=== PATIENT | female | born 1970 | race Hispanic/Latino ===

== ENCOUNTER 2017-09-05 12:13 | Outpatient (CLI) | payer BC | END 2017-09-05 12:14 | disposition home or self-care (01) | LOC: BICRAD 12:13 | PROVIDERS: ATTEND Family Medicine | DX: M79.672 Pain in left foot (principal); M19.072 Primary osteoarthritis, left ankle and foot ==

== ENCOUNTER 2018-11-24 08:04 | Inpatient (IN) | payer BC ==
--- NOTE | 2018-11-24 08:23 | RAD ---
Exam: Chest one view HISTORY:Pain Comparison: 04/30/17 FINDINGS: Lungs: No masses or consolidation. Cardiac silhouette: Normal size Pulmonary vessels: Normal Pleural Spaces: Clear Pneumothorax: None Osseous abnormalities: None of acuity. IMPRESSION: No focal consolidation.
[2018-11-24 08:25] LABS: #Eosinphils 0.1 thou/uL (0.0-0.7); #Lymphocytes 1.7 thou/uL (1.20-3.40); #Monocytes 0.6 thou/uL (0.11-0.59); #Neutrophils 6.7 thou/uL (1.40-6.50); %Basophils 0.3 % (0.0-1.0); %Eosinophils 1.1 % (0.0-10.0); %Lymphocytes 18.4 % (21.0-51.0); %Monocytes 6.8 % (0.0-10.0); %Neutrophils 73.5 % (42.0-75.0); Hemoglobin 16.3 g/dL (12.0-16.0); Mean Corpuscular HGB CONC 31.5 g/dL (32.0-36.0); Mean Corpuscular Hemoglobin 26.6 pg (27.0-31.0); Mean Corpuscular Volume 84.3 fL (78.0-98.0); Mean Platelet Volume 8.6 fL (7.4-10.4); Platelet Count 234 thou/uL (130-400); RBC Distribution Width 12.4 % (11.5-14.5); Red Blood Cell (RBC) Count 6.15 mill/uL (4.20-5.40); White Blood Cell (WBC) Count 9.2 thou/uL (4.8-10.8)
[2018-11-24 08:37] LABS: ALT (SGPT) 19 U/L (8-55); AST (SGOT) 13 U/L (5-34); Albumin 4.8 g/dL (3.5-5.0); Alkaline Phosphatase 71 U/L (40-150); Anion Gap 12 mmol/L (10-20); BUN (Urea Nitrogen) 12 mg/dL (7.0-18.7); Bilirubin, Total 0.6 mg/dL (0.2-1.2); CK (CPK) 68 U/L (29-168); Calc. Creatinine Clearance 0 mL/min (70-130); Calcium 10.1 mg/dL (7.8-10.44); Carbon Dioxide 32 mmol/L (22-29); Chloride 99 mmol/L (98-107); Estimated GFR-MDRD 79; Globulin 3.3 g/dL (2.4-3.5); Glucose 118 mg/dL (70-105); Potassium 3.7 mmol/L (3.5-5.1); Protein, Total 8.1 g/dL (6.0-8.3); Sodium 139 mmol/L (136-145)
[2018-11-24] MEDS ORDERED: Aspirin Chewable 81 MG TAB ONE (08:50)
[2018-11-24 09:02] LABS: CKMB 2.3 ng/mL (0-6.6)
[2018-11-24] MEDS ORDERED: Enoxaparin Sodium 100 MG/ML SYRINGE ONE (09:07)
[2018-11-24] MEDS ORDERED: Nitroglycerin 0.4 MG TAB 1 EACH ONE ×2 (09:07→09:09)
--- NOTE | 2018-11-24 11:48 | HP ---
PRIMARY CARE PHYSICIAN: Harley Brown DO CHIEF COMPLAINT: Chest pain. HISTORY OF PRESENT ILLNESS: The history of present illness is taken primarily from the patient's daughter, who is at the bedside, who also acts as a laundry machine operator. Ms. Ackerman is a 48-year-old female, who has a history of hypertension. She was in her usual state of health until last night. She says that she was just basically sitting and watching TV when she started having some pain in her chest. She says it was pretty much all over her chest and started as a soreness and then ever so often she would get some severe or some sharp chest pains as well. She thought it could be due to her blood pressure, so she took her atenolol, but it did not help and the pain pretty much went through out the night and got progressively worse and until this morning when she woke up, it was about 10/10. She went to work as usual, however, but as she was working, the pain got worse and she told her boss that she could not do it anymore and as a result, she came to the ER for evaluation. The patient also felt some shortness of breath associated with this. She was feeling anxious and exhausted and in the last month, she has been extremely fatigued. She also says in the last couple of weeks when she walks, she would get some pain in her chest as well. She also noted some chills as well but no nausea, no vomiting, no diaphoresis. Again, the pain radiated between the shoulder blades. When she was seen in the emergency room, she was given aspirin and sublingual nitroglycerin as well as Lovenox and says that this has brought the pain down from 10 to 7. The patient denies any palpitations. No leg pain or leg swelling in the last few days. REVIEW OF SYSTEMS: All systems were reviewed and are negative except for that mentioned in the history of present illness. PAST MEDICAL HISTORY: Significant for hypertension. PAST SURGICAL HISTORY: Significant for cholecystectomy. ALLERGIES: NO KNOWN DRUG ALLERGIES. SOCIAL HISTORY: She is . She has 6 children. She smokes about one cigarette a day. She drinks occasionally on specially vents and she is a full code. FAMILY HISTORY: Significant for hypertension and her father had an OR and at age 68. MEDICATIONS: Include: 1. Atenolol. 2. Chlorthalidone 25 mg. PHYSICAL EXAMINATION: GENERAL: She is alert and oriented. She appears to be in no acute distress. She is well developed and well nourished, very cooperative. VITAL SIGNS: Her blood pressure was 183/90, heart rate 54, respiratory rate of 16, and temperature is 98. HEENT: Her pupils are equal, round, and reactive. Extraocular muscles are intact. Throat; there is no erythema, no exudates. NECK: There is no adenopathy, no bruits. LUNGS: Clear to auscultation. There is no wheezing, no rales, no rhonchi. CARDIOVASCULAR: She had a normal S1, S2. I did not appreciate an S3 or S4. No murmurs, clicks, or rubs. ABDOMEN: Obese. It is soft. It is nontender and nondistended. Positive for bowel sounds. There is no rebound or guarding. EXTREMITIES: There is no clubbing or cyanosis. No edema. NEUROLOGIC: Grossly nonfocal. SKIN AND INTEGUMENT: There are no skin changes. No rashes. LABORATORY DATA: The white blood cell count was 9.2, hemoglobin 16.3, hematocrit is 51.8, and platelet count is 234. Sodium is 139, potassium 3.7, chloride is 99, CO2 is 32, BUN of 12, creatinine 0.78, glucose is 118. Her troponin was 0.030. On her EKG, it was sinus rhythm, the rate was around 60. Normal axis with no ST wave changes. She also had chest x-ray, which was essentially negative. There was no evidence of any infiltrates or effusions. ASSESSMENT: 1. This is a 48-year-old female, who presents with chest pain. The description of her pain is a bit atypical and that it happened all over and was at rest. She is a bit young for coronary artery disease. However, given her personal history of hypertension and the fact that she is a smoker and she did have some exertional symptoms, it does place coronary artery disease a little bit higher on the differential plus she had a troponin which was slightly elevated. It is unlikely that this is a pulmonary embolism as she has been more or less ambulatory and her symptoms are not suggestive of this. Therefore, she will be placed in the observation. She will be admitted for possible acute coronary syndrome. We will continue to trend her cardiac enzymes. Place her on aspirin, nitrates, and Lovenox or heparin as well as a beta kandice, which she is already on. We will order a nuclear stress test. If her troponins go in a range of NSTEMI, then the stress test can be aborted and then Cardiology will be consulted instead. 2. With regard to hypertension, continue atenolol, plus we will have p.r.n. medications available, and we will also check a lipid panel. Further recommendations are to follow. Job ID: [id number]
[2018-11-24 11:54] LABS: Troponin I 0.413 ng/mL (< 0.028)
[2018-11-24] MEDS ORDERED: Nitroglycerin 2% Ointment 1 INCH/1 GM Packet TOP SCH ×2 (14:00→17:30)
[2018-11-24] MEDS ORDERED: Labetalol HCl 100 MG/20 ML VIAL SLOW IVP PRN (14:19)
[2018-11-24] MEDS ORDERED: hydrALAZINE 20 MG/ML VIAL SLOW IVP PRN (14:19)
[2018-11-24] MEDS ORDERED: Acetaminophen 325 MG TAB PO PRN (14:19)
[2018-11-24 15:28] VITALS: BMI 36.6
--- NOTE | 2018-11-24 15:30 | CT ---
Exam: CT angiogram chest: CT angiogram abdomen: Exams include 3-D rendering: HISTORY: Chest pain COMPARISON: None FINDINGS: CT angiogram chest: No evidence for aortic aneurysm or dissection. No central pulmonary artery thrombosis. No pleural or pericardial effusion. No acute pulmonary parenchymal process. Remote appearing collapsed T8 vertebral body. No mediastinal mass or adenopathy. CT angiogram abdomen: No evidence of abdominal aortic aneurysm or dissection. Superior mesenteric artery, celiac artery, and inferior mesenteric arteries are unremarkable. Renal arteries are unremarkable bilaterally. Status post cholecystectomy. No evidence for other significant acute process in the abdomen. IMPRESSION: No evidence for aortic aneurysm or dissection are other significant acute process in the chest or abd omen.
[2018-11-24 15:40] LABS: Troponin I 3.891 ng/mL (< 0.028)
[2018-11-24] MEDS ORDERED: ISOVUE-370 76%-LOCM 1 ML ONE (16:54)
[2018-11-24] MEDS: Sodium Chloride 0.9% 1,000 ML IV SCH (19:32)
--- NOTE | 2018-11-24 20:32 | CON ---
DATE OF CONSULTATION: HISTORY OF PRESENT ILLNESS: The patient is a 48-year-old woman, who presents with chest discomfort. The patient was seen in April 2017 with chest discomfort. The patient underwent an evaluation including echocardiogram, which was unremarkable. The patient presented with the acute onset of left-sided chest discomfort. She states this started yesterday morning. It was present throughout the day. The patient reported having dyspnea. The patient came to the emergency room for further evaluation. The patient states she has continued to have this discomfort. PAST MEDICAL HISTORY: Significant for hypertension. PAST SURGICAL HISTORY: Hysterectomy and cholecystectomy. SOCIAL HISTORY: Nonsmoker. FAMILY HISTORY: Strong family history of heart disease. ALLERGIES: NO KNOWN DRUG ALLERGIES. PHYSICAL EXAMINATION: GENERAL: This is an obese woman, in no acute distress. VITAL SIGNS: Blood pressure is 160/70. NECK: No jugular venous distention. LUNGS: Clear to auscultation. HEART: Regular rate and rhythm. Normal S1 and S2 with a 2/6 systolic murmur. ABDOMEN: Distended. EXTREMITIES: Showed trace edema. Vascular radial pulse 2+. LABORATORY DATA: White blood cell count 9.2, hemoglobin 16.3, hematocrit 51.8, and platelet 234. Sodium is 139, potassium 3.7, chloride 99, bicarb 32, BUN 12, creatinine 0.78, and glucose 118. Troponin is 0.0413. EKG revealed normal sinus rhythm, normal ECG. IMPRESSION: 1. Chest pain. 2. Hypertension. 3. Possible small non-Q-wave myocardial infarction. 4. Obesity. PLAN: This patient presents with chest discomfort and markedly elevated blood pressure. Troponin is mildly elevated. We would recommend a CT scan to rule out an aortic dissection. We will obtain serial cardiac enzymes. Further recommendation will follow. Job ID: [id number]
[2018-11-24 20:49] LABS: Hemoglobin 15.5 g/dL (12.0-16.0); Platelet Count 215 thou/uL (130-400)
[2018-11-24] MEDS ORDERED: Enoxaparin Sodium 100 MG/ML SYRINGE SC SCH (21:00)
[2018-11-24] MEDS: Atorvastatin Calcium 40 MG TAB PO SCH (21:17)
[2018-11-24] MEDS: Famotidine 20 MG TAB PO SCH (21:18)
[2018-11-24] MEDS: Nitroglycerin 2% Ointment 1 INCH/1 GM Packet TOP SCH (21:18)
[2018-11-25] MEDS: Sodium Chloride 0.9% 1,000 ML IV SCH (05:22)
[2018-11-25] MEDS: Nitroglycerin 2% Ointment 1 INCH/1 GM Packet TOP SCH ×3 (05:23→21:04)
[2018-11-25] MEDS: Aspirin 325 MG TAB PO SCH (05:24)
[2018-11-25] MEDS: Famotidine 20 MG TAB PO SCH ×2 (05:25→21:01)
[2018-11-25 06:55] LABS: #Eosinphils 0.1 thou/uL (0.0-0.7); #Lymphocytes 1.6 thou/uL (1.20-3.40); #Monocytes 0.5 thou/uL (0.11-0.59); #Neutrophils 4.4 thou/uL (1.40-6.50); %Basophils 0.2 % (0.0-1.0); %Eosinophils 1.9 % (0.0-10.0); %Lymphocytes 24.1 % (21.0-51.0); %Monocytes 7.7 % (0.0-10.0); %Neutrophils 66.1 % (42.0-75.0); Mean Corpuscular HGB CONC 33.6 g/dL (32.0-36.0); Mean Corpuscular Hemoglobin 28.6 pg (27.0-31.0); Mean Platelet Volume 8.4 fL (7.4-10.4); Platelet Count 177 thou/uL (130-400); RBC Distribution Width 12.4 % (11.5-14.5); Red Blood Cell (RBC) Count 5.23 mill/uL (4.20-5.40); White Blood Cell (WBC) Count 6.6 thou/uL (4.8-10.8)
[2018-11-25 07:06] LABS: Anion Gap 10 mmol/L (10-20); BUN (Urea Nitrogen) 13 mg/dL (7.0-18.7); Calc. Creatinine Clearance 126 mL/min (70-130); Calcium 9.2 mg/dL (7.8-10.44); Carbon Dioxide 29 mmol/L (22-29); Cardiac Risk 4.6 (Less than 4.5); Chloride 102 mmol/L (98-107); Cholesterol 197 mg/dl (< 200 Desired); Estimated GFR-MDRD 81; Glucose 92 mg/dL (70-105); HDL Cholesterol 43 mg/dL (>60 Neg Risk); LDL Cholesterol, Calculated 129 mg/dL; Potassium 4.1 mmol/L (3.5-5.1); Sodium 137 mmol/L (136-145); Triglycerides 123 mg/dL (Less than 150)
[2018-11-25] MEDS ORDERED: Fentanyl 100 MCG/2 ML VIAL ONE (07:24)
[2018-11-25] MEDS ORDERED: Midazolam HCl 2 mg/2 ml Vial ONE (07:24)
[2018-11-25] MEDS ORDERED: Sodium Chloride 0.9% 200 ML IV PRN (08:00)
[2018-11-25] MEDS ORDERED: Acetaminophen/Codeine 30-300mg Tablet PO PRN (08:02)
[2018-11-25] MEDS ORDERED: Nitroglycerin 0.4 MG TAB (25 Tab Bottle) SL PRN (08:02)
[2018-11-25] MEDS ORDERED: Clopidogrel Bisulfate 300 MG TAB PO SCH (08:30)
[2018-11-25] MEDS ORDERED: Non-Formulary Item 1 EACH (Atenolol/Chlorthalidone [Atenolol-Chlorthalidone 50-25] 1 EACH PO SCH (09:00)
[2018-11-25] MEDS ORDERED: Atenolol 50 MG TAB PO SCH (09:00)
[2018-11-25] MEDS ORDERED: Chlorthalidone 25 MG TAB PO SCH (09:00)
[2018-11-25] MEDS: Carvedilol 3.125 MG TAB PO SCH ×2 (09:38→21:01)
[2018-11-25] MEDS: Lisinopril 2.5 MG TAB PO SCH (09:38)
[2018-11-25] MEDS ORDERED: Iopamidol 370 76% 100 ML VIAL ONE (11:59)
[2018-11-25] MEDS ORDERED: Communication Order-Pharmacy FS SCH (18:00)
[2018-11-25] MEDS: Atorvastatin Calcium 40 MG TAB PO SCH (21:01)
--- NOTE | 2018-11-25 21:11 | PDOC.PN ---
- Subjective Encounter Start Date: 11/25/18 Encounter Start Time: 09:00 Subjective: pt up in bed no complains of pain - Objective Resuscitation Status - Order Detail: 11/24/18 11:13 Resuscitation Status Routine Resuscitation Status: FULL: Full Resuscitation Vital Signs & Weight: Vital Signs (12 hours) Temp Pulse Pulse Pulse Resp BP BP 11/25/18 19:15 97.3 F L 87 18 11/25/18 16:29 98 F 69 18 11/25/18 12:48 99 F 69 18 11/25/18 11:56 64 63 138/74 136/66 11/25/18 09:17 56 L BP Pulse Ox Pulse Ox Pulse Ox 11/25/18 19:15 122/58 L 96 11/25/18 16:29 120/63 96 11/25/18 12:48 129/73 96 11/25/18 11:56 96 96 11/25/18 09:17 Weight Weight 194 lb I&O: 11/24/18 11/25/18 11/26/18 06:59 06:59 06:59 Intake Total 1540 720 Output Total 800 500 Balance 740 220 Result Diagrams: 11/25/18 06:23 11/25/18 06:23 Phys Exam - Physical Examination Neck: no nodes, no JVD, supple, full ROM Respiratory: no wheezing, no rales, no rhonchi, wheezing present, clear to auscultation bilateral Cardiovascular: RRR, no significant murmur, no rub, gallop, irregular Gastrointestinal: soft, non-tender, no distention, positive bowel sounds Dx/Plan (1) NSTEMI (non-ST elevated myocardial infarction) Code(s): I21.4 - NON-ST ELEVATION (NSTEMI) MYOCARDIAL INFARCTION Status: Acute (2) Chest pain Code(s): R07.9 - CHEST PAIN, UNSPECIFIED Status: Acute (3) Obesity Code(s): E66.9 - OBESITY, UNSPECIFIED Status: Acute (4) Anemia Code(s): D64.9 - ANEMIA, UNSPECIFIED Status: Acute - Plan pt on asa/statin and AC -: pt to go for cardiac cath this am. -: will continue to monitor * . Review of Systems - Review of Systems ENT: negative: Ear Pain, Ear Discharge, Nose Pain, Nose Discharge, Nose Congestion, Mouth Pain, Mouth Swelling, Throat Pain, Throat Swelling, Other Respiratory: negative: Cough, Dry, Shortness of Breath, Hemoptysis, SOB with Excertion, Pleuritic Pain, Sputum, Wheezing - Medications/Allergies Allergies/Adverse Reactions: Allergies Allergy/AdvReac Type Severity Reaction Status Date / Time No Known Drug Allergies Allergy Verified 11/09/15 11:22 Medications: Current Medications Acetaminophen (Tylenol) 650 mg PO Q4H PRN PRN Reason: Headache/Fever/Mild Pain (1-3) Acetaminophen/Codeine Phosphate (Tylenol #3) 1 tab PO Q4H PRN PRN Reason: Mild Pain (1-3) Last Admin: 11/25/18 19:23 Dose: 1 tab Aspirin (Aspirin) 325 mg PO DAILY [facility] Last Admin: 11/25/18 05:24 Dose: 325 mg Atorvastatin Calcium (Lipitor) 40 mg PO HS [facility] Last Admin: 11/25/18 21:01 Dose: 40 mg Carvedilol (Coreg) 3.125 mg PO BID [facility] Last Admin: 11/25/18 21:01 Dose: 3.125 mg Clopidogrel Bisulfate (Plavix) 75 mg PO DAILY [facility] Famotidine (Pepcid) 20 mg PO BID [facility] Last Admin: 11/25/18 21:01 Dose: 20 mg Hydralazine HCl (Apresoline) 10 mg SLOW IVP Q4H PRN PRN Reason: SBP > 180 and HR < 70 Labetalol HCl (Normodyne) 20 mg SLOW IVP Q4H PRN PRN Reason: SBP > 180 and HR >/= 70 Lisinopril (Zestril) 2.5 mg PO DAILY [facility] Last Admin: 11/25/18 09:38 Dose: 2.5 mg Nitroglycerin (Nitro-Bid 2% Ointment) 0.5 inch TOP Q8HR [facility] Last Admin: 11/25/18 21:04 Dose: 0.5 inch Nitroglycerin (Nitrostat) 0.4 mg SL Q5MIN PRN PRN Reason: Chest Pain
[2018-11-26] MEDS: Nitroglycerin 2% Ointment 1 INCH/1 GM Packet TOP SCH ×2 (05:31→13:48)
[2018-11-26 08:09] VITALS: TEMP 97.9
[2018-11-26] MEDS: Aspirin 325 MG TAB PO SCH (08:43)
[2018-11-26] MEDS: Lisinopril 2.5 MG TAB PO SCH (08:43)
[2018-11-26] MEDS: Famotidine 20 MG TAB PO SCH (08:43)
[2018-11-26] MEDS: Carvedilol 3.125 MG TAB PO SCH (08:43)
[2018-11-26] MEDS ORDERED: Clopidogrel Bisulfate 75 MG TAB PO SCH (09:00)
[2018-11-26 15:10] VITALS: BP 124/61
--- NOTE | 2018-11-27 05:24 | DIS ---
DATE OF ADMISSION: 11/24/2018 DATE OF DISCHARGE: 11/26/2018 DISCHARGE DIAGNOSES: As of the following; 1. Gty-QP-[id number] elevation myocardial infarction. 2. Hypertension. 3. Smoking history. 4. Obesity. HOSPITAL COURSE: The patient is a 48-year-old female who initially presented to the hospital with chest pain. She did undergo a CT dissection which was negative for any aortic aneurysm dissection. At this time, her enzymes continued to worsen. She underwent a catheterization by Cardiology, which indicated severe distal RPDA 90% stenosis and small vessel non-amenable to stenting or bypass. Her EF was normal and moderate plaque to left circumflex, moderate plaque to left diagonal, and moderate to mid LAD. At this time, the recommendation was Plavix and aspirin, high-dose statin, MAC and beta kandice. The patient was stable overnight and will be discharged home. DISCHARGE MEDICATIONS: As of the following; 1. Lisinopril 2.5 daily. 2. Clopidogrel 75 daily. 3. Carvedilol 3.125 twice a day. 4. Lipitor 20 mg at bedtime. 5. Aspirin 325 mg daily. DISCHARGE FOLLOWUP: She will follow up with Cardiology as outpatient. PHYSICAL EXAMINATION: VITAL SIGNS: 97.9, 65, 16, 96% on room air 121/64. GENERAL: She is awake, alert, and oriented x3. Does not appear in any distress. CV: S1, S2 present. No murmurs, rubs, or gallops. ABDOMEN: Soft and nontender. Bowel sounds are present x2. Her right groin catheterization site appears stable. EXTREMITIES: Pulses are present. DISCHARGE INSTRUCTIONS: The patient was again recommended not to smoke. She understands and I did also tell her that she needs to be compliant with the medications and follow up with Cardiology. Job ID: [id number]
--- NOTE | 2018-11-28 14:17 | EKG ---
Test Reason : Blood Pressure : / mmHG Vent. Rate : 060 BPM Atrial Rate : 060 BPM P-R Int : 150 ms QRS Dur : 070 ms QT Int : 450 ms P-R-T Axes : 052 026 033 degrees QTc Int : 450 ms Normal sinus rhythm Possible Left atrial enlargement Borderline ECG Confirmed by HUMBLE LAGUNA DO ([id number]), editor city [place] [facility] ([id number]) on 11/28/2018 2:17:09 PM Referred By: Confirmed By:HUMBLE LAGUNA DO
--- NOTE | 2018-11-28 14:17 | EKG ---
Test Reason : Blood Pressure : / mmHG Vent. Rate : 063 BPM Atrial Rate : 063 BPM P-R Int : 124 ms QRS Dur : 086 ms QT Int : 458 ms P-R-T Axes : 033 013 049 degrees QTc Int : 468 ms Normal sinus rhythm Possible Left atrial enlargement Left ventricular hypertrophy Abnormal ECG Confirmed by HUMBLE LAGUNA DO ([id number]), art editor [employer]Z IVORY ([id number]) on 11/28/2018 2:17:12 PM Referred By: Confirmed By:HUMBLE LAGUNA DO
== END 2018-11-26 14:43 | disposition home or self-care (01) | DRG 282 ==
LOC: ERS 08:04 → ERHOLD 10:58 → 2NO 15:30
PROVIDERS: ADMIT Internal Medicine; ATTEND Internal Medicine
PROC: 4A023N7 Measurement of Cardiac Sampling and Pressure, Left Heart, Percutaneous Approach (ICD-10-PCS; principal; 2018-11-24)
PROC: B2151ZZ Fluoroscopy of Left Heart using Low Osmolar Contrast (ICD-10-PCS; 2018-11-24)
PROC: B2111ZZ Fluoroscopy of Multiple Coronary Arteries using Low Osmolar Contrast (ICD-10-PCS; 2018-11-24)
DX: I21.4 Non-ST elevation (NSTEMI) myocardial infarction (principal); I10 Essential (primary) hypertension; F17.210 Nicotine dependence, cigarettes, uncomplicated; E66.9 Obesity, unspecified; D64.9 Anemia, unspecified; Z68.36 Body mass index [BMI] 36.0-36.9, adult; Z90.49 Acquired absence of other specified parts of digestive tract; Z90.710 Acquired absence of both cervix and uterus; Z79.899 Other long term (current) drug therapy; I25.10 Atherosclerotic heart disease of native coronary artery without angina pectoris
CPT/HCPCS: 36415; 71045; 71275; 80048; 80053; 80061; 82550; 82553; 84484; 85025; 90471; 90732; 93005; 93306; 93458; 93798; 94760; 96372; 99152; 99153; C1769; G0009; J1644; J1650; J2250; J3010; Q9966; Q9967

== ENCOUNTER 2018-12-02 13:07 | Outpatient (CLI) | payer BC ==
--- NOTE | 2018-12-02 14:12 | ULT ---
EXAM: Right lower extremity arterial ultrasound HISTORY: Right thigh pain after right groin catheterization COMPARISON: None TECHNIQUE: Multiplanar grayscale and color Doppler images were obtained and a right lower extremity a rterial ultrasound. Spectral analysis of the Doppler waveforms were performed. FINDINGS: No significant calcified plaque is seen in the right lower extremity. There is a fluid ariella ection in the right inguinal region which lacks internal flow consistent with a hematoma. There is no evidence of pseudoaneurysm. Right lower extremity: Common femoral artery: Triphasic Profundofemoral artery: Triphasic Superficial femoral artery: Triphasic Popliteal artery: Triphasic Anterior tibial artery: Triphasic Posterior tibial artery: Not examined by the technologist Dorsalis pedis artery: Not examined by the technologist No significant increase in velocity is seen from a more proximal to a distal segment to suggest an ar ea of focal atherosclerotic disease. IMPRESSION: 1. No significant arterial abnormality of the right leg. 2. Right inguinal hematoma without pseudoaneurysm
== END 2018-12-02 13:08 | disposition home or self-care (01) ==
LOC: ULT 13:07
PROVIDERS: ATTEND Family Medicine
DX: Z09 Encounter for follow-up examination after completed treatment for conditions other than malignant neoplasm (principal); I21.4 Non-ST elevation (NSTEMI) myocardial infarction; M79.651 Pain in right thigh; M79.81 Nontraumatic hematoma of soft tissue
CPT/HCPCS: 76882; 93923

== ENCOUNTER 2019-01-05 23:15 | Observation (INO) | payer BC ==
[2019-01-05] MEDS ORDERED: hydrALAZINE 20 MG/ML VIAL ONE (23:34)
--- NOTE | 2019-01-05 23:46 | RAD ---
AP view chest. HISTORY: Hypertension. AP view chest is obtained. The lungs are well aerated. No evidence of active intrathoracic disease se en. No evidence of effusions, pneumonia or pneumothorax seen. IMPRESSION: pulmonary vascular congestion otherwise unremarkable AP view chest.
[2019-01-05 23:54] LABS: #Eosinphils 0.2 thou/uL (0.0-0.7); #Lymphocytes 1.7 thou/uL (1.20-3.40); #Monocytes 0.5 thou/uL (0.11-0.59); #Neutrophils 4.4 thou/uL (1.40-6.50); %Basophils 0.3 % (0.0-1.0); %Eosinophils 3.6 % (0.0-10.0); %Lymphocytes 24.8 % (21.0-51.0); %Monocytes 7.4 % (0.0-10.0); Hemoglobin 14.6 g/dL (12.0-16.0); Mean Corpuscular HGB CONC 34.3 g/dL (32.0-36.0); Mean Corpuscular Hemoglobin 28.9 pg (27.0-31.0); Mean Corpuscular Volume 84.3 fL (78.0-98.0); Mean Platelet Volume 8.2 fL (7.4-10.4); Platelet Count 167 thou/uL (130-400); RBC Distribution Width 12.7 % (11.5-14.5); Red Blood Cell (RBC) Count 5.07 mill/uL (4.20-5.40); White Blood Cell (WBC) Count 6.8 thou/uL (4.8-10.8)
[2019-01-06 00:18] LABS: ALT (SGPT) 13 U/L (8-55); AST (SGOT) 15 U/L (5-34); Albumin 4.4 g/dL (3.5-5.0); Alkaline Phosphatase 82 U/L (40-150); Anion Gap 11 mmol/L (10-20); BUN (Urea Nitrogen) 11 mg/dL (7.0-18.7); Bilirubin, Total 0.3 mg/dL (0.2-1.2); CK (CPK) 43 U/L (29-168); Calc. Creatinine Clearance 0 mL/min (70-130); Calcium 9.5 mg/dL (7.8-10.44); Carbon Dioxide 29 mmol/L (22-29); Chloride 103 mmol/L (98-107); Estimated GFR-MDRD 89; Globulin 3.3 g/dL (2.4-3.5); Glucose 103 mg/dL (70-105); Protein, Total 7.7 g/dL (6.0-8.3); Sodium 139 mmol/L (136-145)
[2019-01-06] MEDS ORDERED: hydrALAZINE 20 MG/ML VIAL ONE (00:26)
[2019-01-06 03:36] LABS: Troponin I Less than 0.010 ng/mL (< 0.028)
[2019-01-06 06:00] LABS: Troponin I Less than 0.010 ng/mL (< 0.028)
[2019-01-06] MEDS ORDERED: Carvedilol 6.25 MG TAB PO SCH (08:00)
[2019-01-06 08:02] VITALS: BP 161/88; TEMP 97.3
[2019-01-06] MEDS ORDERED: Lisinopril 10 MG TAB PO SCH (09:00)
[2019-01-06] MEDS ORDERED: hydrALAZINE 25 MG TAB PO SCH (09:00)
[2019-01-06] MEDS ORDERED: Lisinopril 2.5 MG TAB PO SCH (09:00)
[2019-01-06] MEDS ORDERED: Amlodipine 5 MG TAB PO SCH (09:00)
[2019-01-06] MEDS ORDERED: Lisinopril 5 MG TAB PO SCH (09:00)
[2019-01-06] MEDS ORDERED: Aspirin 325 MG TAB PO SCH (09:00)
[2019-01-06] MEDS ORDERED: Carvedilol 3.125 MG TAB PO SCH (09:00)
[2019-01-06] MEDS ORDERED: Clopidogrel Bisulfate 75 MG TAB PO SCH (09:00)
[2019-01-06] MEDS ORDERED: Atorvastatin Calcium 40 MG TAB PO SCH (21:00)
--- NOTE | 2019-01-07 06:42 | SS ---
DATE OF ADMISSION: 01/06/2019 DATE OF DISCHARGE: 01/06/2019 PRIMARY CARE PHYSICIAN: Harley Brown. PRIMARY INSEAM TRIMMER: Dr. Lares. CHIEF COMPLAINT: Hypertension and chest pain. HISTORY OF PRESENT ILLNESS: This is a 48-year-old female. History is primarily taken from her daughter who is at the bedside and acting as a concrete paver. She has a history of hypertension and diagnosed with coronary artery disease last month with a catheterization by Dr. Lares showing severe distal RPDA 90% stenosis, not amenable to stenting or bypass. She was originally put on low-dose lisinopril and Coreg. However, she was having some symptoms and possibly some bradycardia from this, so the Coreg was stopped. The patient reports that she typically checks her blood pressures early in the morning and it is usually about 110/60. She never checks it after getting up and moving around or after exertion. Yesterday, the patient went to physical therapy. She started feeling kind of bad and the physical therapist checked her blood pressure and it was up in the 170s to 180s, so they stopped therapy. The patient later on started having some anterior chest pain and back pain. She went to [facility] and her blood pressure was 210/110. The patient reports that the pain lasted for about half an hour was gone by the time she went to the emergency room, middle of the chest radiating to the back. No other associated symptoms. In the emergency room, the patient was found to have a systolic blood pressure of 209/92. She was given two doses of IV hydralazine with improvement in her blood pressure 160/90 and resolution of all symptoms. The patient had negative cardiac marker. She was put in observation over the night. The patient had negative cardiac markers x3 and is asymptomatic this morning with blood pressures running in the 150s to 160s over 80s and no events on the monitor. PAST MEDICAL HISTORY: 1. Hypertension. 2. Coronary artery disease. PAST SURGICAL HISTORY: Cholecystectomy. SOCIAL HISTORY: The patient is . She has 6 children. She smokes about one cigarette per day. She drinks occasionally on special events. FAMILY HISTORY: Significant for hypertension and her father had a myocardial infarction and at age 68. CURRENT MEDICATIONS: 1. Lisinopril 2.5 mg daily. 2. Aspirin 325 mg daily. 3. Atorvastatin 40 mg daily. 4. Clopidogrel 75 mg daily. ALLERGIES: NO KNOWN DRUG ALLERGIES. REVIEW OF SYSTEMS: CONSTITUTIONAL: No fevers or chills. EYES: She has some blurred vision sometimes and some difficulty with her depth perception that is chronic. ENT: No congestion, drainage, or sore throat. CARDIOVASCULAR: See HPI. PULMONARY: No coughing, wheezing, or shortness of breath. GASTROINTESTINAL: No abdominal pain. No nausea or vomiting. No diarrhea or constipation. GENITOURINARY: No dysuria or hematuria. MUSCULOSKELETAL: No muscle aches or joint pain. SKIN: No rashes or other lesions noted. NEUROLOGIC: No numbness, tingling, or focal weakness. PHYSICAL EXAMINATION: VITAL SIGNS: Blood pressure 161/88, pulse 61, respirations 16, O2 saturation 96 % on room air, and temperature 97.3. GENERAL: This is a well-developed, obese female, in no acute distress. HEENT: Pupils are equally round and reactive to light. Oropharynx clear without lesions, erythema, or exudate. NECK: Supple. No lymphadenopathy. No thyroid nodules or enlargement. No JVD. HEART: Regular rate and rhythm. No murmurs, rubs, or gallops. LUNGS: Clear to auscultation bilaterally. No wheezes, crackles, or rhonchi. ABDOMEN: Soft, nontender to palpation. Obese. Normoactive bowel sounds. No hepatosplenomegaly or other masses. EXTREMITIES: No clubbing, cyanosis, or edema. She has good peripheral pulses. SKIN: No rashes or lesions noted. NEUROLOGIC: Intact strength and sensation in all extremities. No facial droop. LABORATORY DATA: CBC within normal limits. Complete metabolic panel is within normal limits. Troponins negative x3. IMAGING STUDIES: Chest x-ray, I did review the chest x-ray done in the emergency room along with the radiologist's report. It show normal cardiac silhouette. No significant infiltrates or effusions. No acute cardiopulmonary process. EKG, I did review the EKG done in the emergency room which showed normal sinus rhythm. No ST-segment changes. No left ventricular hypertrophy. No other abnormalities. Normal EKG. ASSESSMENT: 1. Hypertensive emergency, now resolved. 2. Coronary artery disease with angina from the hypertensive emergency, now resolved. I did call Dr. Lares, the patient's printing grey cloth tender and discussed her case with him. We will increase her lisinopril to 5 mg daily and add amlodipine 5 mg daily and have her follow up with him. She is scheduled to see him next week in the clinic. DISCHARGE MANAGEMENT: Location: Discharged home. Followup: Follow up with Dr. Lares as scheduled. Activity: As tolerated. Diet: Healthy heart, low-sodium diet. MEDICATIONS: 1. Lisinopril 5 mg daily, 30 tablets dispensed. 2. Amlodipine 5 mg daily, 30 tablets dispensed. 3. Aspirin 325 mg daily. 4. Atorvastatin 40 mg at night. 5. Clopidogrel 75 mg daily. Job ID: [id number] [facility]
== END 2019-01-06 10:58 | disposition home or self-care (01) ==
LOC: ERS 23:15 → 2SW 01-06 02:43
PROVIDERS: ADMIT Hospitalist; ATTEND Hospitalist
DX: I16.1 Hypertensive emergency (principal); I25.119 Atherosclerotic heart disease of native coronary artery with unspecified angina pectoris; I10 Essential (primary) hypertension; F17.210 Nicotine dependence, cigarettes, uncomplicated; Z79.02 Long term (current) use of antithrombotics/antiplatelets; Z79.82 Long term (current) use of aspirin; Z79.899 Other long term (current) drug therapy
CPT/HCPCS: 36415; 71045; 80053; 82550; 84484; 85025; 93005; 96374; 96376; G0378; J0360